=== PATIENT | female | born 1985 | race Caucasian/White ===

== ENCOUNTER 2017-08-31 20:01 | Emergency (ER) | payer OTHER | END 2017-08-31 21:09 | disposition home or self-care (01) | LOC: E/R 20:01 | DX: J06.9 Acute upper respiratory infection, unspecified (principal) | CPT/HCPCS: 99283; Z7502 ==

== ENCOUNTER 2017-10-23 10:27 | Emergency (ER) | payer OTHER ==
[2017-10-23 11:32] LABS: ADD UMIC YES; UR ASCORBIC ACID NEGATIVE (NEGATIVE); UR BACTERIA FEW /HPF (NONE SEEN); UR BILIRUBIN (Dip) NEGATIVE (NEGATIVE); UR BLOOD (Dip) 1+ mg/dL (NEGATIVE); UR CLARITY CLEAR (CLEAR); UR COLOR COLORLESS (YELLOW); UR GLUCOSE (Dip) NEGATIVE (NEGATIVE); UR KETONES (Dip) NEGATIVE (NEGATIVE); UR LEUKOCYTE ESTERASE (Dip) TRACE Leu/ul (NEGATIVE); UR NITRITE (Dip) NEGATIVE (NEGATIVE); UR RBC 0 /HPF (0-5); UR SPECIFIC GRAVITY (Dip) 1.004 (1.003-1.030); UR TOTAL PROTEIN (Dip) NEGATIVE (NEGATIVE); UR UROBILINOGEN (Dip) NEGATIVE (NEGATIVE); UR WBC 13 /HPF (0-5)
== END 2017-10-23 11:49 | disposition home or self-care (01) ==
LOC: FTE 10:27
DX: N39.0 Urinary tract infection, site not specified (principal)
CPT/HCPCS: 81001; 84703; 99283

== ENCOUNTER 2018-11-15 09:52 | Emergency (ER) | payer OTHER | END 2018-11-15 10:47 | disposition home or self-care (01) | LOC: FTE 09:52 | DX: R05 Cough (principal) | CPT/HCPCS: 99283; Z7502 ==